=== PATIENT | female | born 1985 | race Asian ===

== ENCOUNTER 2016-03-28 20:02 | Inpatient (IN) | payer OTHER ==
[~2016-03-28] VITALS: Ht 157.5 cm; Wt 59.0 kg
[2016-03-28 20:05] VITALS: BP 126/78; PULSE 77; RESP 16; TEMP 97.8; O2SAT 100
[2016-03-28 21:12] VITALS: BP 134/95; PULSE 86; RESP 18; O2SAT 100
[2016-03-28 22:07] LABS: AUTOMATED NEUTROPHIL # 6.6 TH/MM3 (1.8-7.7); BASOPHIL # 0.1 TH/MM3 (0-0.2); BASOPHIL % 0.5 % (0.0-2.0); EOSINOPHIL # 0.4 TH/MM3 (0-0.4); EOSINOPHIL % 3.5 % (0.0-4.0); HEMATOCRIT 41.4 % (35.0-46.0); HEMO FLAGS DIFF FINAL; LYMPH % 21.4 % (9.0-44.0); LYMPHOCYTE # 2.2 TH/MM3 (1.0-4.8); MEAN CELL VOLUME 83.2 FL (80.0-100.0); MEAN CORPUSCULAR HEMOGLOBIN 28.7 PG (27.0-34.0); MEAN CORPUSCULAR HGB CONC 34.5 % (32.0-36.0); MONO % 8.6 % (0.0-8.0); PLATELET COUNT 305 TH/MM3 (150-450); RED BLOOD COUNT 4.97 MIL/MM3 (4.00-5.30); RED CELL DISTRIBUTION WIDTH 14.5 % (11.6-17.2); WHITE BLOOD COUNT 10.1 TH/MM3 (4.0-11.0)
[2016-03-28] MEDS ORDERED: LAMO25TA PO (22:16)
[2016-03-28] MEDS ORDERED: TEMA30CA PO (22:16)
[2016-03-28] MEDS ORDERED: RISP0.5T2 PO (22:16)
[2016-03-28 22:19] LABS: AMPHETAMINE, URINE NEG (NEG); BARBITURATES, URINE NEG (NEG); COCAINE, URINE NEG (NEG)
[2016-03-28] MEDS ORDERED: OLANZapine IM 10 MG VIAL IM ONE (22:30)
[2016-03-28 22:37] LABS: ANION GAP 9 MEQ/L (5-15); BICARBONATE 28.9 MEQ/L (21.0-32.0); BLOOD UREA NITROGEN 10 MG/DL (7-18); CHLORIDE 103 MEQ/L (98-107); GLOMERULAR FILTRATION RATE 74 ML/MIN (>89); POTASSIUM 4.2 MEQ/L (3.5-5.1); SODIUM (NA) 141 MEQ/L (136-145)
--- NOTE | 2016-03-28 23:10 | PD ---
HPI Chief Complaint: Psychiatric Symptoms Time Seen by Provider: 23:10 Travel History International Travel<30 days: No Contact w/Intl Traveler<30days: No Traveled to known affect area: No History of Present Illness HPI 30-year-old female presents to the emergency department under Prieto act for psychiatric evaluation. Per the Prieto act, patient has not been taking her antipsychotic medication. Became aggressive towards her fianc when he was bringing her here to meet a psychiatrist. She threatened to jump out of a car. Patient denies this. States that she has just been stressed out. Denies any suicidal or homicidal ideations. Patient denies any psychiatric history. There are no other symptoms to report at this time. PFSH Past Medical History Asthma: Yes Diminished Hearing: No Respiratory: Yes Immunizations Current: Yes Tetanus Vaccination: < 5 Years Influenza Vaccination: No ?: Not LMP: CURRENT : 3 Para: 2 Miscarriage: 1 Past Surgical History Surgical History: No Previous Surgery Social History Alcohol Use: Yes Tobacco Use: Yes Substance Use: Yes Allergies-Medications (Allergen,Severity, Reaction): Coded Allergies: Cipro (Verified Allergy, Unknown, 03/28/16) Reported Meds & Prescriptions Reported Meds & Active Scripts Active Reported Temazepam 30 Mg Cap 50 Mg PO HS PRN Lamotrigine 25 Mg Tab 50 Mg PO HS Risperidone 0.5 Mg Tab 0.5 Mg PO BID Review of Systems Except as stated in HPI: all other systems reviewed are Neg Physical Exam Narrative GENERAL: Well-nourished female patient, in no acute distress SKIN: Warm and dry. HEAD: Atraumatic. Normocephalic. EYES: Pupils equal and round. No scleral icterus. No injection or drainage. ENT: No nasal bleeding or discharge. Mucous membranes pink and moist. NECK: Trachea midline. No JVD. CARDIOVASCULAR: Regular rate and rhythm. No murmur appreciated. RESPIRATORY: No accessory muscle use. Clear to auscultation. Breath sounds equal bilaterally. GASTROINTESTINAL: Abdomen soft, non-tender, nondistended. Hepatic and splenic margins not palpable. MUSCULOSKELETAL: No obvious deformities. No clubbing. No cyanosis. No edema. NEUROLOGICAL: Awake and alert. No obvious cranial nerve deficits. Motor grossly within normal limits. Normal speech. Data Data Last Documented VS Vital Signs Date Time Temp Pulse Resp B/P Pulse Ox O2 Delivery O2 Flow Rate FiO2 03/29/16 02:13 90 18 92/52 98 Room Air 03/28/16 20:05 97.8 Orders Complete Blood Count With Diff (03/28/16 21:02) Basic Metabolic Panel (Bmp) (03/28/16 21:02) Drug Screen, Random Urine (03/28/16 21:02) Ed Urine Pregnancytest Poc (03/28/16 21:02) Alcohol (Ethanol) (03/28/16 21:02) Psych Screen (03/28/16 21:02) Olanzapine Inj (Zyprexa Inj) (03/28/16 22:30) Diet Regular Basic (03/29/16 Breakfast) Labs Laboratory Tests Test 03/28/16 03/28/16 21:13 21:35 Sodium Level 141 MEQ/L Potassium Level 4.2 MEQ/L Chloride Level 103 MEQ/L Carbon Dioxide Level 28.9 MEQ/L Anion Gap 9 MEQ/L Blood Urea Nitrogen 10 MG/DL Creatinine 0.89 MG/DL Estimat Glomerular Filtration 74 ML/MIN Rate Random Glucose 101 MG/DL Calcium Level 9.3 MG/DL Urine Opiates Screen NEG Urine Barbiturates Screen NEG Urine Amphetamines Screen NEG Urine Benzodiazepines Screen NEG Urine Cocaine Screen NEG Urine Cannabinoids Screen NEG Ethyl Alcohol Level LESS THAN 3 MG/DL White Blood Count 10.1 TH/MM3 Red Blood Count 4.97 MIL/MM3 Hemoglobin 14.3 GM/DL Hematocrit 41.4 % Mean Corpuscular Volume 83.2 FL Mean Corpuscular Hemoglobin 28.7 PG Mean Corpuscular Hemoglobin 34.5 % Concent Red Cell Distribution Width 14.5 % Platelet Count 305 TH/MM3 Mean Platelet Volume 8.2 FL Neutrophils (%) (Auto) 66.0 % Lymphocytes (%) (Auto) 21.4 % Monocytes (%) (Auto) 8.6 % Eosinophils (%) (Auto) 3.5 % Basophils (%) (Auto) 0.5 % Neutrophils # (Auto) 6.6 TH/MM3 Lymphocytes # (Auto) 2.2 TH/MM3 Monocytes # (Auto) 0.9 TH/MM3 Eosinophils # (Auto) 0.4 TH/MM3 Basophils # (Auto) 0.1 TH/MM3 CBC Comment DIFF FINAL Differential Comment MDM Medical Decision Making Medical Screen Exam Complete: Yes Emergency Medical Condition: Yes Medical Record Reviewed: Yes Differential Diagnosis Acute psychosis versus major disorder versus personality disorder Narrative Course 30-year-old female presents to emergency department under Prieto act for psychiatric evaluation. Patient appears without distress. Lab work is without acute concern. Patient is medically cleared to undergo psychiatric screening for further evaluation and disposition. Mental health screening discussed with the patient. Psychiatric screen ordered. Diagnosis Primary Impression: Mood disorder Condition: Stable Cortney Blake Mar 28, 2016 23:10
[2016-03-29 02:13] VITALS: BP 92/52; PULSE 90; RESP 18; O2SAT 98
[2016-03-29 06:17] VITALS: BP 118/76; PULSE 84; RESP 18; TEMP 97.3; O2SAT 99
[2016-03-29] MEDS ORDERED: IBUPROFEN 800 MG TAB PO ONE (10:00)
--- NOTE | 2016-03-29 10:58 | PD ---
History of Present Illness Chief Complaint: Psychiatric Symptoms Time Seen by Provider: 10:30 Travel History International Travel<30 Days: No Contact w/Intl Traveler<30days: No Known affected area: No Legal Status Legal Status: Prieto Act Prieto Act Signed By: Grisel Travis History of Present Illness: History of Present Illness 30-year-old female with no reported psychiatric history who presents to the emergency department under Preito act for psychiatric evaluation. Per the Prieto act she became violent and threatened to jump out of the car while being transported to [facility] for an evaluation. Patient denies this. States that she has just been stressed out. It was reported by her mechee that during the past few weeks she has not been sleeping, has been promiscuous and has spent in excess of $30, 00 dollars while she was on a cruise. Patient is seen in J pod. She is awake, alert and oriented. Speech is clear. Her thoughts are disorganized and she has difficulty maintaining her focus. She does not appear to be internally preoccupied.She denies any hallucinations, delusions. 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 She also believes that her identity was stolen while she was on the cruise and that many charges have been made to her account. She states " They think I am crazy because I smoke cigarettes". Denies any substance use and negative toxicology. She denies any previous psychiatric history but she is receiving psychiatric medications at this time as per record. Case discussed with Dr. Farmer who accepts patient for admission. [facility] Past Medical History Asthma: Yes Diminished Hearing: No Respiratory: Yes Immunizations Current: Yes Tetanus Vaccination: < 5 Years Influenza Vaccination: No ?: Not LMP: CURRENT : 3 Para: 2 Miscarriage: 1 Past Surgical History Surgical History: No Previous Surgery Psychiatric History Psychiatric History Hx Psychiatric Treatment: HX OF INPT TX DENIED FORMAL DX History of Inpatient Treatment: Yes Guns or firearms in home: No Social History Born in [facility]. In [place] age 1 year. Single but lives with her chacha x 11 years. Has 2 children ages 6 years and 8 years. 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 Hx Alcohol Use: Yes Hx Tobacco Use: Yes Hx Substance Use: Yes Substance Use Type: Alcohol, Nicotine/Cigarettes Other Substances Used: SOCIAL DRINKER Hx of Substance Use Treatment: No Family Psychiatric History Negative Allergies-Medications (Allergen,Severity, Reaction): Coded Allergies: Cipro (Verified Allergy, Unknown, 03/28/16) Reported Meds & Prescriptions Reported Meds & Active Scripts Active Reported Temazepam 30 Mg Cap 50 Mg PO HS PRN Lamotrigine 25 Mg Tab 50 Mg PO HS Risperidone 0.5 Mg Tab 0.5 Mg PO BID Review of Systems Except as stated in HPI: all other systems reviewed are Neg Psychiatric: DENIES: Anxiety, Confusion, Mood changes, Depression, Hallucinations, Agitation, Suicidal Ideation, Homicidal Ideation, Delusions Exam Alert: Yes [place]: Person (ox4) Mood: Calm Affect: Euthymic Speech: Clear, Tangential Eye Contact: Normal Memory Intact: Comment (no impairment) Hallucinations: Other (denies any) Delusions: No (But is suspicious) Suicidal: Ideation (denies any) Homicidal: Ideation (denies any) Insight/Judgement poor. poor MDM Medical Decision Making Medical Record Reviewed: Yes Assessment/Plan 30 year old female under a BA for threatening to jump out of a moving vehicle. Family reports recent behaviors such as excessive spending, not sleeping and promiscuity. patient denies any of these allegations at this time. Her family have contacted [facility] psychiatrist several times requesting admission for her. At this time case is consulted with Dr. Farmer and she will be admitted for further observation and , monitoring. Orders Complete Blood Count With Diff (03/28/16 21:02) Basic Metabolic Panel (Bmp) (03/28/16 21:02) Drug Screen, Random Urine (03/28/16 21:02) Ed Urine Pregnancytest Poc (03/28/16 21:02) Alcohol (Ethanol) (03/28/16 21:02) Psych Screen (03/28/16 21:02) Olanzapine Inj (Zyprexa Inj) (03/28/16 22:30) Diet Regular Basic (03/29/16 Breakfast) Diet Regular Basic (03/29/16 Lunch) Ibuprofen (Motrin) (03/29/16 10:00) Results Vital Signs Date Time Temp Pulse Resp B/P Pulse Ox O2 Delivery O2 Flow Rate FiO2 03/29/16 06:17 97.3 84 18 118/76 99 Room Air 03/29/16 02:13 90 18 92/52 98 Room Air 03/28/16 21:12 86 18 134/95 100 Room Air 03/28/16 20:05 97.8 77 16 126/78 100 Laboratory Tests Test 03/28/16 03/28/16 21:13 21:35 Sodium Level 141 Potassium Level 4.2 Chloride Level 103 Carbon Dioxide Level 28.9 Anion Gap 9 Blood Urea Nitrogen 10 Creatinine 0.89 Estimat Glomerular Filtration 74 Rate Random Glucose 101 Calcium Level 9.3 Urine Opiates Screen NEG Urine Barbiturates Screen NEG Urine Amphetamines Screen NEG Urine Benzodiazepines Screen NEG Urine Cocaine Screen NEG Urine Cannabinoids Screen NEG Ethyl Alcohol Level LESS THAN 3 White Blood Count 10.1 Red Blood Count 4.97 Hemoglobin 14.3 Hematocrit 41.4 Mean Corpuscular Volume 83.2 Mean Corpuscular Hemoglobin 28.7 Mean Corpuscular Hemoglobin 34.5 Concent Red Cell Distribution Width 14.5 Platelet Count 305 Mean Platelet Volume 8.2 Neutrophils (%) (Auto) 66.0 Lymphocytes (%) (Auto) 21.4 Monocytes (%) (Auto) 8.6 Eosinophils (%) (Auto) 3.5 Basophils (%) (Auto) 0.5 Neutrophils # (Auto) 6.6 Lymphocytes # (Auto) 2.2 Monocytes # (Auto) 0.9 Eosinophils # (Auto) 0.4 Basophils # (Auto) 0.1 CBC Comment DIFF FINAL Differential Comment Diagnosis Primary Impression: Mood disorder Admitting Information Admitting Physician Requests: Admit (DR. Farmer) Disposition: 01 DISCHARGE HOME Condition: Stable Angie Valles PURNIMA Mar 29, 2016 10:58
[2016-03-29] MEDS ORDERED: MAGNESIUM HYDROXIDE SUSP 30 ML CUP PO PRN (11:30)
[2016-03-29] MEDS ORDERED: ALUMINUM/MAGNESIUM/SIMETH 30 ML CUP PO PRN (11:30)
[2016-03-29 14:29] VITALS: BP 109/56; PULSE 69; RESP 18; TEMP 98; O2SAT 98
[2016-03-29] MEDS: NICOTINE 21 MG/24 HR PATCH T-DERMAL SCH (14:30)
[2016-03-29] MEDS ORDERED: OLANZapine IM 10 MG VIAL IM PRN (14:45)
[2016-03-29] MEDS: LITHIUM CARBONATE 300 MG TAB PO SCH ×2 (14:45→21:21)
[2016-03-29] MEDS: OLANZapine 5 MG TAB PO SCH ×2 (14:45→21:21)
--- NOTE | 2016-03-29 15:57 | HHI.HP ---
Provisional Diagnosis Admission Date Mar 29, 2016 at 11:26 [place] I. Bipolar disorder type I, manic episode, with psychotic features vs schizoaffective disorder bipolar type [place] II. Deferred [place] III. Pituitary tumor [place] IV. Poor compliance with medication, poor insight, family dynamic conflicts [place] V. 35 Certification of Person's Competence To Provide Express and Informed Consent I have personally examined Jhonny Mahoney , a person being served at [facility] on, Mar 29, 2016 15:22. Express and informed consent means consent voluntarily given in writing, by a competent person, after sufficient explanation and disclosure of the subject matter involved to enable the person to make a knowing and willful decision without any element of force, fraud, deceit, duress, or other form of constraint or coercion. This person is 18 years of age or older, is not now known to be incompetent to consent to treatment with a guardian advocate, and does not have a health care surrogate or proxy currently making medical treatment decisions. I have found this person to be one of the following: [] Competent to provide express and informed consent, as defined above, for voluntary admission to this facility and is competent to provide express and informed consent for treatment. He/she has the consistent capacity to make well reasoned, willful, and knowing decisions concerning his or her medical or mental health treatment. The person fully and consistently understands the purpose of the admission for examination/placement and is fully capable of personally exercising all rights assured under [place] Incompetent to provide express and informed consent to voluntary admission, and this is incompetent to provide express and informed consent to treatment. The person must be transferred to involuntary status and a petition for a guardian advocate filed with the Circuit Court. [X] Refusing to provide express and informed consent to voluntary admission but is competent to provide express and informed consent for treatment. The person must be discharged or transferred to involuntary status. Form shall be completed within 24 hours of a person's arrival at the receiving facility and filed in the clinical record of each person: 1. Admitted on a voluntary basis 2. Permitted to provide express and informed consent to his/her own treatment 3. Allowed to transfer from involuntary to voluntary status 4. Prior to permitting a person to consent to his or her own treatment after having been previously found incompetent to consent to treatment. 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 Patient was seen for psychiatric evaluation in the med/psych unit along with hospital social worker Adele, collateral information from her was obtained. On psychiatric evaluation patient was calm, cooperative, irritable at times and very labile. The patient explains that she doesn't understand what is the reason she is here, she says that in the last 2 months "I have not been acting normal, I know, is that the reason to put in a psychiatric gordon". She explains that most probably the reason she is here is because her wants to divorce her and want to have her father from him so he can do what he wants to. She says that in the last months she has been very busy, organizing her taxes, cleaning her house, decorating her office, and taking care of business. She says that she has been spending a lot of money in the organization of her life "because I deserve to spend money, if he can spend money, I can spend money too". She says that she just went to a cruise last week and she is spend over $30,000 in the [employer] and buying things that she needs. She also explains that her is mad with her because she has been going to have fun with her friends "and he cannot accept that I had not her slave and have a life. I love [employer], you have more fun there, but he can not accept that". She reports that she has been having increased energy, she has been feeling "special", with a decreased need for sleep, with an increased need to socialize and have fun. However, she denies depressive symptoms, increased self esteem, she denies paranoia, denies delusions, denies thought controlling, denies suicidal or homicidal ideation. She also denies visual and auditory hallucination. Patient is fully oriented 3 , no gross cognitive impairment observed. During the evaluation patient becomes disorganized often, labile, with frequent mood swings, going easily from laughing very loud to crying. Even though she became verbally hostile at one point, requesting to be discharged, she was redirectable and accepted the fact that she has to remain in the unit for completion of psychiatric evaluation. Her , reached by phone, explains that at least for the last 2 months, patient hasn't been the same, she has been increasingly paranoid, disorganized, she can work, she can take care of her kids, but very often she talks to self, becoming paranoid and gives her family, again is her , against everybody. About a week ago she thought that people were controlling her with their phones and the television was talking about her. Yesterday they landed in [place] after a cruise vacation. He says that during that cruise vacation the patient was extremely disorganized, inappropriate, "acting crazy", he confirmed that she is spend over 30, 000 dollars in unnecessary stuff. He was reluctant to bring her to psychiatry thinking that her condition could be treated in outpatient basis, but she doesn't take the medications, and she has been getting worse. Review of Systems Constitutional: DENIES: Diaphoretic episodes, Fatigue, Fever, Weight gain, Weight loss, Chills, Dizziness, Change in appetite, Night Sweats Endocrine: DENIES: Abnorml menstrual pattern, Heat/cold intolerance, Polydipsia , Polyuria, Polyphagia Eyes: DENIES: Blurred vision, Diplopia, Eye inflammation, Eye pain, Vision loss , Photosensitivity, Double Vision Respiratory: DENIES: Apneas, Cough, Snoring, Wheezing, Hemoptysis, Sputum production, Shortness of breath Cardiovascular: DENIES: Chest pain, Palpitations, Syncope, Dyspnea on Exertion , PND, Lower Extremity Edema, Orthopnea, Claudication Gastrointestinal: DENIES: Abdominal pain, Black stools, Bloody stools, Constipation, Diarrhea, Nausea, Vomiting, Difficulty Swallowing, Anorexia Musculoskeletal: DENIES: Joint pain, Muscle aches, Stiffness, Joint Swelling, Back pain, Neck pain Integumentary: DENIES: Abnormal pigmentation, Pruritus, Rash, Nail changes, Breast masses, Breast skin changes, Nipple discharge Hematologic/lymphatic: DENIES: Bruising, Lymphadenopathy Immunologic/allergic: DENIES: Eczema, Urticaria Neurologic: DENIES: Abnormal gait, Headache, Localized weakness, Paresthesias, Seizures, Speech Problems, Tremor, Poor Balance Psychiatric: COMPLAINS OF: Mood changes, DENIES: Anxiety, Confusion, Depression, Hallucinations, Agitation, Suicidal Ideation, Homicidal Ideation, Delusions Past Psych History Psychological trauma history She denies she denies Violence risk - others (6 mos) Increased Violence risk - self (6 mos) Increased Substance Abuse History Drugs/Alcohol past 12 months Patient reports occasional use of alcohol, denies the use of illicit drugs. Past Family Social History Coded Allergies: Cipro (Verified Allergy, Unknown, 03/28/16) Reported Medications Temazepam 30 Mg Cap50 Mg PO HS PRN (INSOMNIA) #30 CAP Ref 0 03/28/16 Lamotrigine 25 Mg Tab50 Mg PO HS #60 TAB Ref 0 03/28/16 Risperidone 0.5 Mg Tab0.5 Mg PO BID #30 TAB Ref 0 03/28/16 Current Medications Medications (Trade) Dose Ordered Sig/Roxana Route Start Time Stop Time Status Last Admin (Tylenol) 650 mg Q4H PRN PO 03/29/16 11:30 (Milk Of Magnesia Liq) 30 ml DAILY PRN PO 03/29/16 11:30 (Mag-Al Plus Susp Liq) 30 ml Q6H PRN PO 03/29/16 11:30 (Habitrol 21 Mg Patch.24 Hr) 1 patch DAILY T-DERMAL 03/29/16 14:30 03/29/16 14:30 (ZyPREXA) 5 mg Q12HR PO 03/29/16 14:45 03/29/16 14:45 (ZyPREXA INJ) 10 mg Q12H PRN IM 03/29/16 14:45 (Lithotabs) 300 mg Q12HR PO 03/29/16 14:45 03/29/16 14:45 Family History She has a case with autism and ADHD Social History Patient was born in [place], was raised in [place], but moved to [place] as an adolescent, she lilves in [place] with her fianc and 2 kids, 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 Physical Exam Vital Signs Vital Signs Date Time Temp Pulse Resp B/P Pulse Ox O2 Delivery O2 Flow Rate FiO2 03/29/16 14:29 98.0 69 18 109/56 98 03/29/16 06:17 Room Air Mental Status Examination Appearance Skinny woman, appearing her stated age, good hygiene, hospital [facility], cooperative, but irritable and inappropriate at times Speech: Fast Orientation: x3 Memory: Unremarkable Thought Process: Logical, Goal Directed, Loose Association Thought Content: Paranoid, Ideas of Reference, Obsessions Hallucination Type: None Attention and Concentration: Abnormal Suicidal Ideation: No Previous Suicide Attempts: No Homicidal Ideation: No Insight: Poor Judgement: Poor Affect: Irritable Mood: Manic (hypomanic) Motor Activity: Normal gait Assessment & Plan Problem List: (1) Bipolar disorder, curr episode manic w/o psychotic features, moderate Assessment & Plan: The patient is a 31 year-old woman, domiciled with her fianc in [place], 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 On psychiatric evaluation patient reports about 2 months history of increased energy, goal-directed activities, decreased need to sleep, frequent arguments with her fianc, sense of feeling "special", increased need to spend money, but but not pressured speech, agitation, acute paranoia, ideas of reference, flight of ideas, hyperactivity, grandiosity or delusions, inflated self esteem are observed at this moment. During the evaluation the patient does present in inappropriate ideas, disorganized thought processes, frequent derailment, very marked labile affect and irritability. She denies suicidal or homicidal ideation, she denies visual and auditory hallucinations. Her fianc, on collateral information, reports that the patient has been not being herself for about 2 months, with periods of increased paranoia, delusions of reference, thinking that the TV and the cell phones are controlling her and talking to her. Patient meets criteria for involuntary psychiatric admission for stabilization and safety. Extensive support, psychoeducation provided. Potential for aggressive behavior has been identify, so patient should be in assault precaution. Will order olanzapine 10 mg IM every 8 hours when necessary aggressive behavior and agitation Social work intervention to completed psychosocial assessment, for psychotherapy , and also to get more collateral information from family members and fianc, and if possible from previous psychiatric hospitalization was [place] Consult for second opinion placed, consult to hospital is placed due to history of pituitary adenoma Will discontinue Risperdal 1 mg and lamotrigine 50 mg, will start olanzapine 5 mg twice a day and lithium 300 mg twice a day for mood stabilization and psychosis Would order T3, T4, TSH, comprehensive metabolic panel, also baseline EKG. ICD Code: F31.12 Assessment & Plan Estimated LOS: Marcus Bear MD Mar 29, 2016 15:57
[2016-03-29] MEDS: ACETAMINOPHEN 325 MG TAB PO PRN (17:32)
[2016-03-29 20:25] VITALS: BP 109/55; PULSE 76; RESP 18; TEMP 97.6; O2SAT 98
[2016-03-29] MEDS ORDERED: lamoTRIgine 25 MG TAB PO SCH (21:00)
[2016-03-29] MEDS ORDERED: risperiDONE 0.5 MG TAB PO SCH (21:00)
[2016-03-30] MEDS: ACETAMINOPHEN 325 MG TAB PO PRN ×2 (03:35→11:57)
[2016-03-30 06:48] VITALS: BP 110/59; PULSE 65; RESP 18; TEMP 97.7; O2SAT 97
[2016-03-30 07:45] LABS: ALKALINE PHOSPHATASE 53 U/L (45-117); ALT (GPT) 27 U/L (10-53); ANION GAP 6 MEQ/L (5-15); AST (GOT) 12 U/L (15-37); BICARBONATE 26.8 MEQ/L (21.0-32.0); BLOOD UREA NITROGEN 13 MG/DL (7-18); CHLORIDE 108 MEQ/L (98-107); FREE T4 1.14 NG/DL (0.76-1.46); GLOMERULAR FILTRATION RATE 90 ML/MIN (>89); HDL CHOLESTEROL 84.9 MG/DL (40.0-60.0); LDL CHOLESTEROL 59 MG/DL (0-99); POTASSIUM 4.1 MEQ/L (3.5-5.1); SODIUM (NA) 141 MEQ/L (136-145); TOTAL BILIRUBIN ADULT 0.4 MG/DL (0.2-1.0)
[2016-03-30] MEDS: NICOTINE 21 MG/24 HR PATCH T-DERMAL SCH (09:00)
[2016-03-30] MEDS: OLANZapine 5 MG TAB PO SCH ×2 (09:00→20:32)
[2016-03-30] MEDS: LITHIUM CARBONATE 300 MG TAB PO SCH ×2 (09:00→20:32)
--- NOTE | 2016-03-30 11:25 | PD.CONS ---
[facility]PI Service [facility] Consult Requested By Dr. Light Reason for Consult History of pituitary tumor Primary Care Physician Unknown Diagnoses: History of Present Illness This is a 30-year-old female patient with a history of bipolar and pituitary tumor. Patient is currently inpatient psychiatric no we have been consulted for assistance with history of pituitary tumor. In questioning patient reports is that she has a benign pituitary tumor diagnosed around 2004 was previously followed by Dr. 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 Patient denies any other medical history and offers no medical complaints at this time. Patient is noted to have pressured speech reports she has to be discharged if she had an appointment in [place] today. Patient denies chest pain shortness of breath nausea vomiting diarrhea constipation fevers or chills Review of Systems Other All other systems reviewed and negative except as mentioned in history of present illness Past Family Social History Allergies: Coded Allergies: Cipro (Verified Allergy, Unknown, 03/28/16) Past Medical History Bipolar, pituitary tumor Past Surgical History Denies prior surgical intervention Reported Medications Temazepam 30 Mg Cap 50 Mg PO HS PRN Lamotrigine 25 Mg Tab 50 Mg PO HS Risperidone 0.5 Mg Tab 0.5 Mg PO BID Active Ordered Medications Current Medications Medications (Trade) Dose Ordered Sig/Roxana Route Start Time Stop Time Status Last Admin (Tylenol) 650 mg Q4H PRN PO 03/29/16 11:30 03/30/16 03:35 (Milk Of Magnesia Liq) 30 ml DAILY PRN PO 03/29/16 11:30 (Mag-Al Plus Susp Liq) 30 ml Q6H PRN PO 03/29/16 11:30 (Habitrol 21 Mg Patch.24 Hr) 1 patch DAILY T-DERMAL 03/29/16 14:30 03/29/16 14:30 (ZyPREXA) 5 mg Q12HR PO 03/29/16 14:45 03/30/16 09:00 (ZyPREXA INJ) 10 mg Q12H PRN IM 03/29/16 14:45 (Lithotabs) 300 mg Q12HR PO 03/29/16 14:45 03/30/16 09:00 Family History Mother has hypertension Father has diabetes Social History Patient reports social EtOH use not on a daily basis Patient reports tobacco use since he was 14 between 3 cigarettes to one pack per day Denies illicit drug use Physical Exam Vital Signs Vital Signs Date Time Temp Pulse Resp B/P Pulse Ox O2 Delivery O2 Flow Rate FiO2 03/30/16 06:48 97.7 65 18 110/59 97 03/29/16 20:25 97.6 76 18 109/55 98 03/29/16 14:29 98.0 69 18 109/56 98 Physical Exam GENERAL: This is a well-nourished, well-developed patient, does appear to have pressured rapid speech SKIN: No rashes, ecchymoses or lesions. Cool and dry. HEAD: Atraumatic. Normocephalic. No temporal or scalp tenderness. EYES: Extraocular motions intact. No scleral icterus. No injection or drainage. ENT: Nose without bleeding, purulent drainage or septal hematoma. Throat without erythema, tonsillar hypertrophy or exudate. Uvula midline. Airway patent. NECK: Trachea midline. No JVD or lymphadenopathy. Supple, nontender, no meningeal signs. CARDIOVASCULAR: Regular rate and rhythm without murmurs, gallops, or rubs. RESPIRATORY: Clear to auscultation. Breath sounds equal bilaterally. No wheezes , rales, or rhonchi. GASTROINTESTINAL: Abdomen soft, non-tender, nondistended. MUSCULOSKELETAL: Extremities without clubbing, cyanosis, or edema. No joint tenderness, effusion, or edema noted. No calf tenderness. Negative Homans sign bilaterally. NEUROLOGICAL: Awake and alert. Cranial nerves II through XII intact. Motor and sensory grossly within normal limits. Five out of 5 muscle strength in all muscle groups. Normal speech. Laboratory Laboratory Tests Test 03/30/16 06:35 Sodium Level 141 Potassium Level 4.1 Chloride Level 108 Carbon Dioxide Level 26.8 Anion Gap 6 Blood Urea Nitrogen 13 Creatinine 0.75 Estimat Glomerular Filtration 90 Rate Random Glucose 94 Calcium Level 8.5 Total Bilirubin 0.4 Aspartate Amino Transf 12 (AST/SGOT) Alanine Aminotransferase 27 (ALT/SGPT) Alkaline Phosphatase 53 Total Protein 7.0 Albumin 3.5 Triglycerides Level 55 Cholesterol Level 155 LDL Cholesterol 59 HDL Cholesterol 84.9 Cholesterol/HDL Ratio 1.82 Free Thyroxine 1.14 Thyroid Stimulating Hormone 3.910 3rd Gen Result Diagram: 03/28/16 2135 03/30/16 0635 Assessment and Plan Assessment and Plan This is a 30-year-old female patient with a history of bipolar and pituitary tumor. Patient is currently inpatient psychiatric no we have been consulted for assistance with history of pituitary tumor. In questioning patient reports is that she has a benign pituitary tumor diagnosed around 2004 Bipolar management per primary team hx of Pituitary tumor TSH reviewed 3.910 Free T4 1.14 Prolactin pending Tobacco abuse patient counseled encouraged to abstain DVT prophylaxis patient is ambulatory Discussed plan of care with patient are in and Dr. Cantu Thank you for the consultation and for allowing us to participate in the care of this patient. Discussed Condition With The exam, history, and the medical decision-making described in the above note were completed with the assistance of the mid-level provider. I reviewed and agree with the findings presented. I attest that I had a [id number] encounter with the patient on the same day, and personally performed and documented my assessment and findings in the medical record. Iilana Lord Mar 30, 2016 11:24 Abhilash Cantu MD Apr 08, 2016 16:14
[2016-03-30 12:01] VITALS: BP 100/60; PULSE 75; RESP 16; TEMP 97.7; O2SAT 99
--- NOTE | 2016-03-30 12:30 | HHI.PYPN ---
Subjective Remarks Patient was seen for evaluation today. She continues to be talkative, but not pressure, disorganized, but redirectable, with frequent derailment, oddly related, with several contradictions and inconsistencies in her statement. She is states that she doesn't have a reason to be here, she says that she has an appointment in [place] for business and for medical care, she also states that the reason she is here is because her is friends of the doctors in [place] and he is conspiring to have her here and be with her other . The patient denies suicidal or homicidal ideation, she denies visual and auditory hallucinations. She has been described as irritable, at times could be disruptive in the unit, but usually redirectable. Her said admitted the following letter with regular information regarding the patient : "My name in Curt Yao. I have been living with Jhonny Mahoney for almost 14 years now. I have never seen her behaving this psychotic before. During the last two months, there are a lot of changes in her thinking as well as in her behavior. Like she can`t tell what`s real and what`s not. Every time she watched a movie or read the news, she thinks it is real and is base on her life now. She has become very delusional and hallucinating more and more. Her biggest fear now is that the [place] government is after her for informations about everything that she knew about other peoples that are bad, child molesters, gamblers, and cheater. Peoples and cars are always following her everywhere she goes. She also mentioned that there are voices in her head telling her what to do. They are telling her that her kids or relatives are in danger and that she has to paid ransom to get them back. Lately she said that she won the lottery and she is so rich that she is buying 10 houses and 10 cars at the same time. She also said that the birds are watching her now. Her symptoms are getting worst and I am very concern for her safely. She has been going to dark and isolated places to drink and smoke. Sometimes she lost focus of where she is or what she is doing. I really think that she needs to be help. " Review of Systems Other No significant changes since 02/27/2016 Objective Alert: Yes [place]: Person (ox4), Place, Date, Situation Mood: Calm, Other (irritable) Affect: Other (inappropriate,. Labile ) Memory Intact: Immediate, Recent, Remote Hallucinations: Other (none) Delusions: No (But is suspicious) Delusion Type: Paranoid Suicidal: Ideation (denies any) Homicidal: Ideation (denies any) Insight/Judgement Poor Labs Test 03/30/16 06:35 Sodium Level 141 MEQ/L Potassium Level 4.1 MEQ/L Chloride Level 108 MEQ/L Carbon Dioxide Level 26.8 MEQ/L Anion Gap 6 MEQ/L Blood Urea Nitrogen 13 MG/DL Creatinine 0.75 MG/DL Estimat Glomerular Filtration 90 ML/MIN Rate Random Glucose 94 MG/DL Calcium Level 8.5 MG/DL Total Bilirubin 0.4 MG/DL Aspartate Amino Transf 12 U/L (AST/SGOT) Alanine Aminotransferase 27 U/L (ALT/SGPT) Alkaline Phosphatase 53 U/L Total Protein 7.0 GM/DL Albumin 3.5 GM/DL Triglycerides Level 55 MG/DL Cholesterol Level 155 MG/DL LDL Cholesterol 59 MG/DL HDL Cholesterol 84.9 MG/DL Cholesterol/HDL Ratio 1.82 RATIO Free Thyroxine 1.14 NG/DL Thyroid Stimulating Hormone 3.910 uIU/ML 3rd Gen Vitals/IOs Vital Signs Date Time Temp Pulse Resp B/P Pulse Ox O2 Delivery O2 Flow Rate FiO2 03/30/16 12:01 97.7 75 16 100/60 99 03/29/16 06:17 Room Air Intake and Output 03/29/16 03/29/16 03/30/16 08:00 16:00 00:00 Intake Total 720 ml Balance 720 ml Assessment & Plan Problem List: (1) Bipolar disorder, curr episode manic w/o psychotic features, moderate Assessment & Plan: Patient is to continue her psychiatric hospitalization for stabilization, medication adjustment, pending collateral information and family meeting. We will continue current psychotropic regimen. ICD Code: F31.12 Assessment & Plan Estimated LOS: days Justification for Cont. Inpt. Patient represents a high risk to decompensate out of the Unit. Marcus Light MD Mar 30, 2016 12:30
--- NOTE | 2016-03-30 14:52 | MB ---
cc: MARK GRAY MD DATE OF CONSULTATION: 03/30/[address] Light. REASON FOR CONSULTATION Second opinion for involuntary psychiatric hospitalization. HISTORY OF PRESENT ILLNESS Ms. Mahoney is a 30-year-old female with no reported past psychiatric history, although chart diagnosis of bipolar disorder who was brought into the hospital under a [place] Act alleging that she had tried to jump out of a car. The patient is presently admitted under the care of Dr. Light and I have reviewed his clinical documentation. Reviewing the electronic medical record, I see the patient was seen once before in consultation for a pituitary tumor but otherwise has no contact within our system. The patient seen and examined with nurse Ana. Chart reviewed. Case discussed with nursing staff. On my examination today, the patient presents with a broad, expansive affect. She is fairly disinhibited and impulsive. There is significant loosening of associations. When I asked about the circumstances that led to her hospitalization, she says that her sister knows her social security number and somehow fabricated a story that led to her being hospitalized. She says "they think I am crazy because I am speaking out." She says that she made the decision to begin speaking out about 2 months ago when "I tried ecstasy at a [place]opez bar in [place]." She then goes off on a tangent that is hard to follow but apparently voices some concerns about her thinking that she had been unfaithful, although she has not been, she says. She also says that she has threatened the of her fiance in text messages. She describes her mood as "so happy", although she also endorses some feelings of irritability noting "I can't stand fake people. It is all for money or status." The patient denies any suicidal or homicidal ideation but it is unclear that she is reliable to contract for safety. She denies any audiovisual hallucinations. I can elicit no delusional material such as paranoia, thought insertion or withdrawal or ideas of reference. There may be some degree of grandiosity present. The remainder of the psychiatric ROS is negative. PAST PSYCHIATRIC HISTORY The patient denies any history of psychiatric diagnosis, although the chart indicates she may have a history of bipolar disorder. She denies any history of inpatient or outpatient psychiatric treatment initially but then says that she was hospitalized for a single day after getting off of a cruise recently. I do see from Dr. Light's documentation that she had spent more than 30,000 dollars on the cruise impulsively. The patient denies a history of suicide attempts. FAMILY HISTORY The patient denies any family history of mental illness. CHEMICAL DEPENDENCY HISTORY The patient reports social use of alcohol and cannabis as well as other street drugs. SOCIAL HISTORY The patient is of [place] extraction. She lives with her fiance who she has known since 2004. She notes that her fiance is still to his first and they have one child together. The patient and fiance have two children ages 6 and 8 together. 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 She describes her catholic as "Yarsanism and Buddhism, I'm not biased". PAST MEDICAL HISTORY Includes a history of pituitary tumor apparently treated medically. ALLERGIES CIPRO. REVIEW OF SYSTEMS Somewhat limited because of the patient's mental state but the patient does not describe any headache, vision or hearing changes, chest pain, shortness of breath, bowel or bladder issues. PHYSICAL EXAMINATION VITAL SIGNS: Temperature is 97.7, pulse 75, respirations 16, blood pressure 100/60, pulse oximetry 99% on room air. A physical examination was completed in the emergency room by the ER staff and the patient was medically cleared. On my examination today, the patient is somewhat hyperkinetic but otherwise no abnormal motor movements noted. She is well-nourished and well-developed and in no acute physical distress. LABORATORIES Laboratories reviewed: CBC is unremarkable. CMP is unremarkable. TSH is mildly elevated but free T4 is within normal limits. Prolactin is pending. Urine toxicology is negative and alcohol level was undetectable. MENTAL STATUS The patient is casually dressed. She is well-groomed. She is awake, alert and oriented to person and hospital at least. The patient is somewhat hyperkinetic but no abnormal motor movements noted otherwise. Speech is pressured and difficult to interrupt. Language and fund of knowledge seem above average. Mood is elevated and affect is broad and expansive. Thought process somewhat disconnected with significant loosening of associations. Possibly some grandiosity present but no other delusional material. Denies AVH, audiovisual hallucinations. Denies suicidal or homicidal ideation but it is unclear that she is reliable to contract for safety. Insight and judgment presently seem poor. ASSESSMENT/PLAN 1. Bipolar disorder, currently manic, moderate, rule out severe with psychotic features. This is a 30-year-old female admitted to the inpatient psychiatric unit under the care of Dr. Light for a manic episode. Given the circumstances of her presentation here and her presentation on my examination today, I concur with Dr. Light that the patient meets criteria for involuntary psychiatric hospitalization under the [place] Act. I have completed the second opinion paperwork. Further care as per Dr. Light. Thank you very much for this consultation. Mark Gray DC/JASIEL /1:49 PM /2:25 PM MTDD
[2016-03-30 17:19] LABS: HEMOGLOBIN A1a 1.3 %; HEMOGLOBIN A1b 0.8 %; HEMOGLOBIN F 1.4 %; HEMOGLOBIN LA1C 1.8 %; HEMOGLOBIN P3 3.6 %
[2016-03-30 18:00] VITALS: BP 117/59; PULSE 76; RESP 17; TEMP 98.1; O2SAT 98
--- NOTE | 2016-03-30 22:05 | EKG ---
Date Performed: 03/29/2016 Time Performed: 22:43:20 PTAGE: 30 years EKG: Sinus rhythm WITH SINUS ARRHYTHMIA POSSIBLE LEFT ATRIAL ENLARGEMENT BORDERLINE ECG NO PREVIOUS TRACING DOCTOR: Neal Mclean Interpretating Date/Time 03/30/2016 22:03:33
[2016-03-31] MEDS: ACETAMINOPHEN 325 MG TAB PO PRN ×3 (04:44→22:30)
[2016-03-31 05:23] VITALS: BP 111/58; PULSE 63; RESP 18; TEMP 97.4
[2016-03-31] MEDS: NICOTINE 21 MG/24 HR PATCH T-DERMAL SCH (09:00)
[2016-03-31] MEDS: LITHIUM CARBONATE 300 MG TAB PO SCH ×2 (09:21→20:37)
[2016-03-31] MEDS: OLANZapine 5 MG TAB PO SCH ×2 (09:22→20:37)
--- NOTE | 2016-03-31 10:37 | HHI.PYPN ---
Subjective Remarks Patient seen in her room with medical student Uzma in nurse Olena, chart review, it is noted that patient prolactin level is somewhat elevated medical services aware of this and will be following up. Patient seen in her room continues somewhat elevated intense mood somewhat labile somewhat disorganized and tangential with her speech. There is a mild grandiosity also with her she focused somewhat on the child traffic problems in [place]. Also talked with her "" Dr. Yao cell lumbar [phone], office number [phone]. He also added that patient has a past history of fairly significant alcohol abuse moderate plus amounts daily and also some significant nicotine use. He does not remember any history of cancer with her that been together 14 years. States she has been fairly healthy until recently with his behavior issues. He also stated though that her family appears to be somewhat labile with temperatures and [id number] behaviors also stated that she has a sister with mental health issues. In any event for now will continue the medication no change we'll defer to medicine service related to follow up with elevated prolactin level. Her "" will mucus at my treatment team on . We also check lithium level tomorrow morning Review of Systems Except as stated in HPI: all other systems reviewed are Neg Objective Alert: Yes [place]: Person (ox4), Place, Date, Situation Mood: Calm, Other (irritable) Affect: Other (inappropriate,. Labile ) Memory Intact: Immediate, Recent, Remote Hallucinations: Other (none) Delusions: No (But is suspicious) Delusion Type: Paranoid Suicidal: Ideation (denies any) Homicidal: Ideation (denies any) Insight/Judgement Poor Labs Test 03/30/16 10:52 Prolactin 57 ng/mL Vitals/IOs Vital Signs Date Time Temp Pulse Resp B/P Pulse Ox O2 Delivery O2 Flow Rate FiO2 03/31/16 05:23 97.4 63 18 111/58 03/30/16 18:00 98 03/29/16 06:17 Room Air Intake and Output 03/30/16 03/30/16 03/31/16 08:00 16:00 00:00 Intake Total 240 ml Balance 240 ml Assessment & Plan Problem List: (1) Bipolar disorder, curr episode manic w/o psychotic features, moderate ICD Code: F31.12 Assessment & Plan Estimated LOS: days patient remains manic with psychotic features. Medicine service continues to assess self-reported history of pituitary tumor and elevated prolactin level Justification for Cont. Inpt. At this time the patient would significantly decompensate if placed in the lower level of care Discharge Planning To be determined Niraj Farmer MD Mar 31, 2016 10:37
--- NOTE | 2016-03-31 13:23 | HHI.PR ---
Blank section for building Case reviewed with Dr. Cantu Laboratory data reviewed TSH 3.91, free T4 1 0.14, prolactin level elevated at 57. Patient does have history of pituitary tumor. Clinically patient is stable recommend patient follows up with PCP and endocrinology as outpatient after discharge. Will sign off if patient's condition changes or further assistance is needed please reconsult Iliana Lord Mar 31, 2016 13:23
[2016-03-31 18:00] VITALS: BP 101/45; PULSE 56; RESP 16; TEMP 97.6; O2SAT 97
[2016-04-01 06:15] VITALS: BP 110/63; PULSE 72; RESP 18; TEMP 98.6; O2SAT 97
[2016-04-01] MEDS: ACETAMINOPHEN 325 MG TAB PO PRN ×3 (06:37→23:17)
[2016-04-01] MEDS: LITHIUM CARBONATE 300 MG TAB PO SCH (08:49)
[2016-04-01] MEDS: OLANZapine 5 MG TAB PO SCH ×2 (08:49→20:13)
[2016-04-01] MEDS: NICOTINE 21 MG/24 HR PATCH T-DERMAL SCH (08:51)
--- NOTE | 2016-04-01 14:19 | HHI.PYPN ---
Subjective Remarks Patient seen in [place] with nurse Olena and medical student Uzma, patient lithium level drawn this a.m. is 0.4 on 300 mg twice a day, will increase lithium to function 50 mg twice a day and check blood level on Tuesday 04/04. Patient today continues with rapid pressured speech though it is slightly decreased in rate and pressure today. Patient still is somewhat scattered and confusing today denying mental illness feeling that she is being railroaded by her family. Taking no responsibility for her behavior. She initially stated she feels the lithium is helping her but when I stated the need for treatment remain in the hospital for further medication management balancing and observation she became anger and stormed off. I did share with her also a conversation with her Dr. pugh yesterday. And that he will be present at my treatment team on 04/04. For now continue treatment no change Review of Systems Except as stated in HPI: all other systems reviewed are Neg Objective Alert: Yes [place]: Person (ox4), Place, Date, Situation Mood: Calm, Other (irritable) Affect: Other (inappropriate,. Labile ) Memory Intact: Immediate, Recent, Remote Hallucinations: Other (none) Delusions: No (But is suspicious) Delusion Type: Paranoid Suicidal: Ideation (denies any) Homicidal: Ideation (denies any) Insight/Judgement Very poor Labs Test 04/01/16 06:42 [place] Level 0.4 MEQ/L Vitals/IOs Vital Signs Date Time Temp Pulse Resp B/P Pulse Ox O2 Delivery O2 Flow Rate FiO2 04/01/16 06:15 98.6 72 18 110/63 97 03/29/16 06:17 Room Air Intake and Output 03/31/16 03/31/16 04/01/16 08:00 16:00 00:00 Intake Total 360 ml Balance 360 ml Assessment & Plan Problem List: (1) Bipolar disorder, curr episode manic w/o psychotic features, moderate ICD Code: F31.12 Assessment & Plan Estimated LOS: days patient remains manic rapid pressured speech quite disorganized grandiose with little insight. See medication adjustments above Justification for Cont. Inpt. At this time the patient would significantly decompensate if placed in the lower level of care Discharge Planning To be determined Niraj Farmer MD Apr 01, 2016 14:19
[2016-04-01 17:35] VITALS: BP 118/84; PULSE 82; RESP 18; TEMP 98.9; O2SAT 99
[2016-04-01] MEDS: LITHIUM CARBONATE 450 MG CONTROLLED RELEASE TAB PO SCH (18:03)
[2016-04-02] MEDS: ACETAMINOPHEN 325 MG TAB PO PRN ×2 (03:00→09:38)
[2016-04-02 05:48] VITALS: BP 102/67; PULSE 77; RESP 18; TEMP 97.7; O2SAT 98
[2016-04-02] MEDS: LITHIUM CARBONATE 450 MG CONTROLLED RELEASE TAB PO SCH ×2 (08:31→17:43)
[2016-04-02] MEDS: OLANZapine 5 MG TAB PO SCH ×2 (08:31→20:55)
[2016-04-02] MEDS: NICOTINE 21 MG/24 HR PATCH T-DERMAL SCH (08:54)
--- NOTE | 2016-04-02 15:11 | HHI.PYPN ---
Subjective Remarks Patient was seen and case discussed with nursing. Patient is pleasant and cooperative with exam. Continues to show manic symptoms. Mood is elated with the patient frequently laughing and smiling. There is a flight of ideas and increased energy. However she is sleeping well. She is compliant with her medications. Has poor insight into her admission. Also admits to another hospital admission 2 weeks ago [place] where she was [place] acted under similar circumstances. I suicidal ideations. Denies auditory visual hallucinations Objective Alert: Yes [place]: Person (ox4), Place, Date, Situation Mood: Calm, Other (irritable) Affect: Other (inappropriate,. Labile ) Memory Intact: Immediate, Recent, Remote Hallucinations: Other (none) Delusions: No (But is suspicious) Delusion Type: Paranoid Suicidal: Ideation (denies any) Homicidal: Ideation (denies any) Insight/Judgement Poor Vitals/IOs Vital Signs Date Time Temp Pulse Resp B/P Pulse Ox O2 Delivery O2 Flow Rate FiO2 04/02/16 05:48 97.7 77 18 102/67 98 Assessment & Plan Problem List: (1) Bipolar disorder, curr episode manic w/o psychotic features, moderate ICD Code: F31.12 Assessment & Plan Continue current treatment plan Justification for Cont. Inpt. Patient will decompensate in a less restrictive setting Roland Reeder DO Apr 02, 2016 15:11
[2016-04-02 18:49] VITALS: BP 115/57; PULSE 61; RESP 16; TEMP 97.9
[2016-04-03 04:32] VITALS: BP 90/50; PULSE 59; RESP 18; TEMP 98.3; O2SAT 97
[2016-04-03] MEDS: ACETAMINOPHEN 325 MG TAB PO PRN (06:45)
[2016-04-03] MEDS: OLANZapine 5 MG TAB PO SCH ×2 (08:11→20:30)
[2016-04-03] MEDS: LITHIUM CARBONATE 450 MG CONTROLLED RELEASE TAB PO SCH ×2 (08:11→17:04)
[2016-04-03] MEDS: NICOTINE 21 MG/24 HR PATCH T-DERMAL SCH (08:14)
--- NOTE | 2016-04-03 12:21 | HHI.PYPN ---
Subjective Remarks Patient was seen and case discussed with nursing. Patient is pleasant and cooperative with exam. Patient remains elevated and laughing and smiling inappropriately. Continues to minimize the reason for her admission. She admitted yesterday she was also another hospital 2 weeks ago. Nursing noted patient was angry after possible argument with family yesterday which patient denies. Chief complaint today is a mild headache. One blood pressure reading that was low this morning. Patient denies suicidal ideations thought content or plan. No tremors or confusion Objective Alert: Yes [place]: Person (ox4), Place, Date, Situation Mood: Calm, Other (irritable) Affect: Other (inappropriate,. Labile ) Memory Intact: Immediate, Recent, Remote Hallucinations: Other (none) Delusions: No (But is suspicious) Delusion Type: Paranoid Suicidal: Ideation (denies any) Homicidal: Ideation (denies any) Insight/Judgement Poor Vitals/IOs Vital Signs Date Time Temp Pulse Resp B/P Pulse Ox O2 Delivery O2 Flow Rate FiO2 04/03/16 04:32 98.3 59 18 90/50 97 Assessment & Plan Problem List: (1) Bipolar disorder, curr episode manic w/o psychotic features, moderate ICD Code: F31.12 Assessment & Plan Vitals every 6 hours. Continue Tylenol for headache, Justification for Cont. Inpt. Patient will decompensate in a less restrictive setting Roland Reeder DO Apr 03, 2016 12:21
[2016-04-03 19:08] VITALS: BP 103/52; PULSE 59; RESP 16; TEMP 97.5; O2SAT 97
[2016-04-04] MEDS: ACETAMINOPHEN 325 MG TAB PO PRN (05:11)
[2016-04-04 05:18] VITALS: BP 93/52; PULSE 60; RESP 16; TEMP 98.7; O2SAT 98
[2016-04-04] MEDS: NICOTINE 21 MG/24 HR PATCH T-DERMAL SCH (09:00)
[2016-04-04] MEDS: LITHIUM CARBONATE 450 MG CONTROLLED RELEASE TAB PO SCH (09:46)
[2016-04-04] MEDS: OLANZapine 5 MG TAB PO SCH (09:46)
[2016-04-04] MEDS ORDERED: LITH450T PO ×2 (13:37→16:27)
[2016-04-04] MEDS ORDERED: OLAN5TAB PO (13:37)
--- NOTE | 2016-04-04 13:46 | HHI.DS ---
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 Patient was seen for psychiatric evaluation in the med/psych unit along with neonatal social worker Adele, collateral information from her was obtained. On psychiatric evaluation patient was calm, cooperative, irritable at times and very labile. The patient explains that she doesn't understand what is the reason she is here, she says that in the last 2 months "I have not been acting normal, I know, is that the reason to put in a psychiatric gordon". She explains that most probably the reason she is here is because her wants to divorce her and want to have her father from him so he can do what he wants to. She says that in the last months she has been very busy, organizing her taxes, cleaning her house, decorating her office, and taking care of business. She says that she has been spending a lot of money in the organization of her life "because I deserve to spend money, if he can spend money, I can spend money too". She says that she just went to a cruise last week and she is spend over $30,000 in the casino and buying things that she needs. She also explains that her is mad with her because she has been going to have fun with her friends "and he cannot accept that I had not her slave and have a life. I love [employer], you have more fun there, but he can not accept that". She reports that she has been having increased energy, she has been feeling "special", with a decreased need for sleep, with an increased need to socialize and have fun. However, she denies depressive symptoms, increased self esteem, she denies paranoia, denies delusions, denies thought controlling, denies suicidal or homicidal ideation. She also denies visual and auditory hallucination. Patient is fully oriented 3 , no gross cognitive impairment observed. During the evaluation patient becomes disorganized often, labile, with frequent mood swings, going easily from laughing very loud to crying. Even though she became verbally hostile at one point, requesting to be discharged, she was redirectable and accepted the fact that she has to remain in the unit for completion of psychiatric evaluation. Her , reached by phone, explains that at least for the last 2 months, patient hasn't been the same, she has been increasingly paranoid, disorganized, she can work, she can take care of her kids, but very often she talks to self, becoming paranoid and gives her family, again is her , against everybody. About a week ago she thought that people were controlling her with their phones and the television was talking about her. Yesterday they landed in [place] after a cruise vacation. He says that during that cruise vacation the patient was extremely disorganized, inappropriate, "acting crazy", he confirmed that she is spend over 30, 000 dollars in unnecessary stuff. He was reluctant to bring her to psychiatry thinking that her condition could be treated in outpatient basis, but she doesn't take the medications, and she has been getting worse. Tobacco Use In Past 30 Days: 5 or More Cigarettes/Day Alcohol Use: 4 or More Times Per Week Hospital Course Patient's david grandiosity slowly diminished over the weekend with her compliance with cooperation with the medication of the milieu. We did have treatment team meeting today with patient's fianc and the patient along with treatment team. Patient is calmer more cooperative her fianc feels that she is doing much better the paranoia grandiosity have diminished. She showing some understanding compliance with the medication and insight. We did discuss dietary needs with this also. That she needs to refrain from alcohol caffeine and tobacco. She agreed to those albeit reluctantly. She denies suicidality homicidality voices or visions. Both she and her fianc feels safe with her going home today. Thus patient will be discharged today to her [facility] for her lithium and her Zyprexa 1 month. Follow-up either with carlos enrique or Dr. Robertson Results Blood Pressure 93 / 52 Vital Signs Date Time Temp Pulse Resp B/P Pulse Ox O2 Delivery O2 Flow Rate FiO2 04/04/16 05:18 98.7 60 16 93/52 98 Laboratory Tests Test 04/04/16 08:34 [place] Level 0.4 MEQ/L (0.5-1.5) Laboratory Results Test 04/04/16 08:34 [place] Level 0.4 MEQ/L (0.5-1.5) Summary of Procedures None done Pending results at discharge: No Medications # of Antipsychotic meds at D/C: 1 Approp Antipsych med options 1 - Minimum of three failed multiple trials of monotherapy. 2 - Documented plan to taper to monotherapy due to previous use of multiple meds OR cross-taper in progress at D/C. 3 - Documentation of augmentation of Clozapine. 4 - Justification other than those listed in allowable values 1-3, document here : Discharge Discharge Date: Apr 04, 2016 Discharge Diagnosis: (1) Bipolar disorder, curr episode manic w/o psychotic features, moderate Diagnosis: Principal ICD Code: F31.12 Mental Status Exam at Disch Alert oriented thin and slender [place] female, she is normal active, mood is euthymic to somewhat elevated affect show slight increase range and intensity. Speech rate and rhythm are slightly increased there is slight pressure to it there are no formal thought disorders. There are no auditory or visual hallucinations no delusions noted insight and judgment is poor to fair cognition grossly intact Pt Condition on Discharge: Stable Discharge Disposition: Discharge Home Discharge Instructions Diet Instructions: As Tolerated, No Restrictions Additional Diet Instructions: Strong recommendation no caffeine, no alcohol, no nicotine Activities you can perform: Regular-No Restrictions Scheduled Appointment: [facility] Appointment Date: Apr 14, 2016 Appointment Time: 1:30 pm Discharge Time > 30 minutes Discharge/Advance Care Plan Health Problems: (1) Bipolar disorder, curr episode manic w/o psychotic features, moderate Goals to promote your health * To prevent worsening of your condition and complications * To maintain your health at the optimal level Directions to meet your goals Take your medications as prescribed Follow your dietary instruction Follow activity as directed Keep your appointments as scheduled Take your immunizations and boosters as scheduled If your symptoms worsen call your PCP, if no PCP go to Urgent Care Center or Emergency Room For 12/09 questions related to your inpatient stay or results of tests pending at discharge, please contact Dr. Niraj Farmer at Smoking is Dangerous to Your Health. Avoid second hand smoking Niraj Farmer MD Apr 04, 2016 13:46
[2016-04-04] MEDS ORDERED: ZYPR5TAB PO (16:27)
== END 2016-04-04 16:30 | disposition home or self-care (01) | DRG 885 ==
LOC: NEPJ 20:02 → NEDA 03-29 11:26 → H4EA 03-29 12:55 → H260 03-30 11:20
PROVIDERS: ADMIT Psychiatry & Neurology Psychiatry; ATTEND Psychiatry & Neurology Psychiatry
DX: F31.12 Bipolar disorder, current episode manic without psychotic features, moderate (principal); Z91.14 Patient's other noncompliance with medication regimen; D49.7 Neoplasm of unspecified behavior of endocrine glands and other parts of nervous system; F17.210 Nicotine dependence, cigarettes, uncomplicated; Z72.89 Other problems related to lifestyle
CPT/HCPCS: 80048; 80053; 80061; 80178; 80307; 80320; 83036; 84146; 84439; 84443; 84703; 85025; 93005; 96372